=== PATIENT | female | born 2005 | race Two or more races ===

== ENCOUNTER 2023-11-05 22:33 | Emergency (ER) | payer OTHER ==
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
[2023-11-06 00:51] LABS: INR 1.1 (0.8-1.2); PT - PROTHROMBIN TIME 11.7 secs (9.9-12.6)
[2023-11-06 00:55] LABS: BASOPHILS # (AUTO) 0.1 10^3/uL (0.0-0.1); BASOPHILS % (AUTO) 0.3 %; EOSINOPHILS % (AUTO) 0.1 %; HCT - HEMATOCRIT 42.6 % (37.0-47.0); HGB - HEMOGLOBIN 13.9 g/dL (12.0-16.0); LYMPHOCYTES # (AUTO) 2.2 10^3/uL (1.5-3.5); LYMPHOCYTES % (AUTO) 13.7 %; MEAN CORPUSCULAR HEMOGLOBIN 30.3 pg (27.0-31.0); MEAN CORPUSCULAR HGB CONC 32.6 g/dL (32.0-36.0); MEAN CORPUSCULAR VOLUME 92.8 fL (81.0-99.0); MEAN PLATELET VOLUME 9.4 fL (7.9-10.8); MONOCYTES # (AUTO) 1.1 10^3/uL (0.0-1.0); MONOCYTES % (AUTO) 7.1 %; NEUTROPHILS # (AUTO) 12.7 10^3/uL (1.5-6.6); NEUTROPHILS % (AUTO) 78.6 %; PLT - PLATELET COUNT 296 10^3/uL (130-450); RED BLOOD COUNT 4.59 10^6/uL (4.20-5.40); WHITE BLOOD COUNT 16.1 x10^3/uL (4.8-10.8)
[2023-11-06] MEDS: SODIUM CHLORIDE 0.9% 1,000 ML IV STA (00:58)
[2023-11-06 01:08] LABS: ALBUMIN/GLOBULIN RATIO 1.6 (1.0-2.2); BILIRUBIN,TOTAL 0.6 mg/dL (0.2-1.0); CALCIUM 10.3 mg/dL (8.5-10.3); CREATININE 0.8 mg/dL (0.6-1.3); POTASSIUM 3.8 mmol/L (3.5-4.5); TOTAL PROTEIN 8.2 g/dL (6.4-8.9)
[2023-11-06] MEDS ORDERED: iohexoL-300 100 ML VIAL ONE (01:17)
[2023-11-06] MEDS: ONDANSETRON 4 MG/2 ML VIAL IVP STA (01:20)
[2023-11-06] MEDS: MORPHINE 2 MG/ML CARPUJECT IVP STA (01:20)
[2023-11-06] MEDS: iohexoL-300 100 ML VIAL IVP ONE (01:42)
[2023-11-06] MEDS ORDERED: HYDROmorphone 1 MG/ML CARPUJECT ONE ×2 (01:59→03:02)
[2023-11-06] MEDS: HYDROmorphone 0.5 MG/0.5 ML SYRINGE IVP STA ×2 (02:02→03:03)
--- NOTE | 2023-11-06 02:03 | CT Report ---
PROCEDURE: Abdomen/Pelvis W INDICATIONS: Flank pain, hematuria, trauma CONTRAST: 100 ML OMNI 300 TECHNIQUE: After the administration of intravenous contrast, a CT scan of the abdomen and pelvis was performed. Images were recorded and evaluated at appropriate window settings. Reformats: coronal and sagittal. F or radiation dose reduction, the following was used: automated exposure control, adjustment of mA and /or kV according to patient size. COMPARISON: None FINDINGS: Image quality: Diagnostic Lower chest: Lower lungs appear unremarkable. Mildly patulous distal esophagus partially seen. Normal heart size. Liver: Unremarkable. No laceration or capsular hematoma Gallbladder and biliary system: Unremarkable, nondilated Pancreas: No pathologic ductal dilation Spleen: No capsular hematoma or laceration Adrenals: No nodule or hematoma Kidneys: No hydronephrosis. No solid renal mass. Moderate left retroperitoneal hemorrhage. The lacera tion is 3 cm (4/75), and extends to the renal hilum. Vessels and lymph nodes: The main portal vein is patent. No pathologic lymph nodes by size criteria. Bowel and peritoneum: No evidence of small bowel obstruction. No hemoperitoneum. Moderate fecal loadi ng. A small amount pelvic free fluid is probably physiologic. No large hemoperitoneum. Body wall: Unremarkable Pelvis: Bladder is unremarkable. Menstrual device in place. Reproductive organs not well evaluated on CT, overall appearing physiologic. Bones: No acute fracture or traumatic subluxation of the lumbar spine. The pelvic ring appears intact . IMPRESSION: Left renal laceration measuring 3 cm, with moderate retroperitoneal hemorrhage. The laceration exten ds to the renal pelvis. This is a AAST grade 3 or 4 injury, consider multiphase imaging (including de layed phase) for further evaluation of vascular and collecting system involvement. Other findings as above. Report called to the ED. Reviewed by: Miquel Ricketts MD on 11/06/2023 2:02 AM PDT Approved by: Miquel Ricketts MD on 11/06/2023 2:02 AM PDT Station ID: [id number]
[2023-11-06 03:25] VITALS: BP 110/64
[2023-11-06 03:32] LABS: BILIRUBIN,URINE NEGATIVE (NEGATIVE); GLUCOSE, URINE (UA) NEGATIVE (NEGATIVE); KETONES,URINE (UA) NEGATIVE (NEGATIVE); LEUKOCYTE ESTERASE, URINE NEGATIVE (NEGATIVE); NITRITE,URINE NEGATIVE (NEGATIVE); OCCULT BLOOD,URINE LARGE (NEGATIVE); PH,URINE 6.5 PH (5.0-7.5); PROTEIN,URINE NEGATIVE (NEGATIVE); UROBILINOGEN,URINE 0.2 (NORMAL) E.U./dL (NORMAL)
[2023-11-06 03:35] VITALS: O2SAT 95
[2023-11-06 03:38] LABS: CLARITY,URINE CLEAR (CLEAR)
[2023-11-06 03:39] LABS: BACTERIA,URINE Rare /HPF (None Seen); RBC,URINE TNTC /HPF (0-5); SQUAMOUS EPITHELIAL CELL,UR FEW Squamous (<= Few); WBC,URINE 0-3 /HPF (0-5)
== END 2023-11-06 03:42 | disposition short-term general hospital (02) ==
LOC: ED 22:33
DX: S37.052A Moderate laceration of left kidney, initial encounter (principal); V86.59XA Driver of other special all-terrain or other off-road motor vehicle injured in nontraffic accident, initial encounter; Y93.89 Activity, other specified; S80.812A Abrasion, left lower leg, initial encounter; S80.811A Abrasion, right lower leg, initial encounter; S80.12XA Contusion of left lower leg, initial encounter; Y92.828 Other wilderness area as the place of occurrence of the external cause
CPT/HCPCS: 36415; 73590; 74177; 80053; 81001; 82550; 83605; 83690; 85025; 85610; 90471; 90715; 96374; 96375; 96376; 99283; 99284; 99285; A9270; J1170; Q9967; 81003; 87086

== ENCOUNTER 2023-11-11 14:18 | Emergency (ER) | payer OTHER ==
[2023-11-11 15:24] LABS: BASOPHILS % (AUTO) 0.4 %; EOSINOPHILS % (AUTO) 0.1 %; HCT - HEMATOCRIT 39.2 % (37.0-47.0); HGB - HEMOGLOBIN 12.8 g/dL (12.0-16.0); LYMPHOCYTES # (AUTO) 1.6 10^3/uL (1.5-3.5); LYMPHOCYTES % (AUTO) 14.7 %; MEAN CORPUSCULAR HEMOGLOBIN 30.3 pg (27.0-31.0); MEAN CORPUSCULAR HGB CONC 32.7 g/dL (32.0-36.0); MEAN CORPUSCULAR VOLUME 92.9 fL (81.0-99.0); MEAN PLATELET VOLUME 8.7 fL (7.9-10.8); MONOCYTES # (AUTO) 0.9 10^3/uL (0.0-1.0); MONOCYTES % (AUTO) 7.7 %; NEUTROPHILS # (AUTO) 8.5 10^3/uL (1.5-6.6); NEUTROPHILS % (AUTO) 76.7 %; PLT - PLATELET COUNT 283 10^3/uL (130-450); RED BLOOD COUNT 4.22 10^6/uL (4.20-5.40); RED CELL DISTRIBUTION WIDTH 11.8 % (12.0-15.0); WHITE BLOOD COUNT 11.1 x10^3/uL (4.8-10.8)
[2023-11-11 15:47] LABS: ALBUMIN 4.7 g/dL (3.2-5.5); ALBUMIN/GLOBULIN RATIO 1.5 (1.0-2.2); BILIRUBIN,TOTAL 0.9 mg/dL (0.2-1.0); CALCIUM 10.2 mg/dL (8.5-10.3); CREATININE 0.8 mg/dL (0.6-1.3); POTASSIUM 4.7 mmol/L (3.5-4.5); TOTAL PROTEIN 7.8 g/dL (6.4-8.9)
[2023-11-11] MEDS ORDERED: iohexoL-300 100 ML VIAL ONE (17:05)
[2023-11-11] MEDS: iohexoL-300 100 ML VIAL IVP ONE (18:36)
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
[2023-11-11 19:46] LABS: HCG UR QUAL NEGATIVE
[2023-11-11 19:59] LABS: BILIRUBIN,URINE NEGATIVE (NEGATIVE); GLUCOSE, URINE (UA) NEGATIVE (NEGATIVE); KETONES,URINE (UA) 40 mg/dL (NEGATIVE); LEUKOCYTE ESTERASE, URINE NEGATIVE (NEGATIVE); NITRITE,URINE NEGATIVE (NEGATIVE); OCCULT BLOOD,URINE TRACE-INTA (NEGATIVE); PROTEIN,URINE NEGATIVE (NEGATIVE); UROBILINOGEN,URINE 1 (NORMAL) E.U./dL (NORMAL)
[2023-11-11 20:19] VITALS: BP 131/86; O2SAT 98
[2023-11-11 20:19] LABS: CLARITY,URINE CLEAR (CLEAR)
== END 2023-11-11 20:17 | disposition home or self-care (01) ==
LOC: ED 14:18
DX: S37.032D Laceration of left kidney, unspecified degree, subsequent encounter (principal); V86.99XD Unspecified occupant of other special all-terrain or other off-road motor vehicle injured in nontraffic accident, subsequent encounter
CPT/HCPCS: 36415; 74177; 80053; 81003; 81025; 83690; 85025; 99283; 99284; Q9967; 81001; 87086